=== PATIENT | male | born 1960 | race Caucasian/White ===

== ENCOUNTER 2023-09-15 01:34 | Emergency (ER) | payer OTHER ==
[2023-09-15] MEDS ORDERED: Ipratropium/Albuterol 3 ML NEB ONE (04:26)
[2023-09-15] MEDS ORDERED: Vancomycin 1 GM VIAL ONE (04:43)
[2023-09-15 04:57] LABS: #Basophils 0.1 10x3/uL (0.0-0.2); #Eosinphils 0.6 10x3/uL (0.0-0.5); #Monocytes 0.9 10x3/uL (0.0-1.1); #Neutrophils 10.3 10x3/uL (1.5-8.4); %Eosinophils 3.8 % (0.0-6.0); %Lymphocytes 18.4 % (18.0-47.0); %Monocytes 5.9 % (0.0-10.0); %Neutrophils 70.6 % (40.0-75.0); Hematocrit 45.6 % (38.8-50.0); Mean Corpuscular HGB CONC 32.9 g/dL (32.0-36.0); Mean Corpuscular Volume 94.2 fl (81.2-95.1); Mean Platelet Volume 11.3 fl (7.4-10.4); Platelet Count 444 10x3/uL (150-450); Red Blood Cell (RBC) Count 4.84 10x6/uL (4.32-5.72); White Blood Cell (WBC) Count 14.6 10x3/uL (3.5-10.5)
[2023-09-15 05:08] LABS: INR-International Normal Ratio 0.9; Prothrombin Time 10.2 sec (9.5-12.1)
[2023-09-15 05:09] LABS: PTT 23.4 sec (22.0-33.0)
[2023-09-15 05:12] LABS: SARS-CoV-2 NAA Rapid Test Not Detected (NotDetected)
[2023-09-15 05:23] LABS: Troponin I 0.116 ng/mL (< 0.028)
[2023-09-15 05:24] LABS: Chloride 101 mmol/L (98-107); Potassium 5.1 mmol/L (3.5-5.1); Sodium 136 mmol/L (136-145)
[2023-09-15 05:29] LABS: Anion Gap 21 mmol/L (10-20); BUN (Urea Nitrogen) 24 mg/dL (8.4-25.7); Calc. Creatinine Clearance 0 mL/min (70-130); Carbon Dioxide 19 mmol/L (23-31); Estimated GFR 59
[2023-09-15 05:31] LABS: Bilirubin, Total 0.3 mg/dL (0.2-1.2); Calcium 8.6 mg/dL (7.6-10.4); Glucose 407 mg/dL (80-115)
[2023-09-15 05:32] LABS: ALT (SGPT) 32 U/L (8-55); AST (SGOT) 23 U/L (5-34); Albumin 4.4 g/dL (3.4-4.8); Alkaline Phosphatase 85 U/L (40-110); Globulin 2.9 g/dL (2.4-3.5); Magnesium 2.2 mg/dL (1.6-2.6); Protein, Total 7.3 g/dL (5.8-8.1)
[2023-09-15 06:22] LABS: Actual Bicarbonate (HCO3a) 21.1 mEq/L (22-28); Base Excess (BEa) -5.5 mEq/L (-2.0 to +3.0); CO2 Tension 44.8 mmHg (35.0-45.0); Calcium, Ionized (arterial) 1.09 mmol/L (1.12-1.30); Carboxyhemoglobin (COHb) 0.6 gm% (0.0-3.0); Hematocrit-ABG 44 % (42.0-52.0); Hemoglobin (Hb) 15.1 g/dL (14.0-18.0); O2 Tension (PaO2), arterial 80.4 mmHg (> 80.0); Potassium - ABG Lab 4.35 mmol/L (3.70-5.30); Puncture Site RRA
[2023-09-15] MEDS ORDERED: Iopamidol 370 76% 100 ML VIAL ONE (08:49)
[2023-09-15 09:04] LABS: Lactic Acid 1.1 mmol/L (0.5-2.2)
== END 2023-09-15 09:51 | disposition short-term general hospital (02) ==
LOC: CSHERS 01:34
DX: J18.9 Pneumonia, unspecified organism (principal); J44.9 Chronic obstructive pulmonary disease, unspecified; I25.10 Atherosclerotic heart disease of native coronary artery without angina pectoris; E78.5 Hyperlipidemia, unspecified; E11.9 Type 2 diabetes mellitus without complications; E66.01 Morbid (severe) obesity due to excess calories; I50.9 Heart failure, unspecified
CPT/HCPCS: 36600; 71045; 71275; 80053; 82010; 82805; 83605; 83735; 83880; 83930; 84443; 84484; 85025; 85610; 85730; 87040; 93005; 94640; 94660; 94760; 96365; 96366; 96367; 96375; J3370; J7620; Q9967